=== PATIENT | female | born 1970 | race Caucasian/White ===

== ENCOUNTER 2022-12-16 08:52 | Emergency (ER) | payer BC ==
[2022-12-16] MEDS ORDERED: Sodium Chloride 0.9% 10 ML Syringe FLUSH PRN (08:58)
[2022-12-16] MEDS ORDERED: Metoprolol Tartrate 5 MG/5 ML SDV IVPUSH ONE (09:02)
[2022-12-16] MEDS ORDERED: Sodium Chloride 0.9% 1,000 ML IV SCH (09:15)
[2022-12-16 09:17] LABS: BASOPHILS PERCENT AUTO 0.3 % (0.2-1.2); EOSINOPHILS ABSOLUTE AUTO 0.1 x10^3/uL (0.0-0.5); EOSINOPHILS PERCENT AUTO 1.3 % (0.0-4.0); HEMATOCRIT 44.9 % (33.0-47.0); HEMOGLOBIN 16.3 g/dL (12.0-16.0); LYMPHOCYTES ABSOLUTE AUTO 2.4 x10^3/uL (1.0-4.8); LYMPHOCYTES PERCENT AUTO 30.7 % (25.0-50.0); MEAN CORPUSCULAR HEMOGLOBIN 33.2 pg (26.0-32.0); MEAN CORPUSCULAR HGB CONC 36.3 g/dL (32.0-36.0); MEAN CORPUSCULAR VOLUME 91.4 fL (78.0-93.0); MONOCYTES ABSOLUTE AUTO 0.9 x10^3/uL (0.0-0.8); MONOCYTES PERCENT AUTO 10.7 % (2.0-11.0); NEUTROPHILS ABSOLUTE AUTO 4.6 x10^3/uL (1.8-7.7); PLATELET COUNT,PLT 176 x10^3/uL (130-400); RED BLOOD CELL COUNT 4.91 x10^6/uL (4.00-5.50)
[2022-12-16] MEDS ORDERED: Aspirin 81 MG Tab.Chew PO ONE (09:29)
[2022-12-16 09:35] LABS: PROTHROMBIN TIME 10.4 SEC (9.5-12.2); PTT,PARTIAL THROMBOPLSTIN TIME 30.1 SEC (23.6-33.6)
[2022-12-16 09:46] LABS: A/G RATIO 1.12; ALANINE AMINOTRANSFERASE,ALT 32 U/L (14-59); ALBUMIN 3.7 g/dL (3.4-5.0); ALKALINE PHOSPHATASE 90 U/L (46-116); ASPARTATE AMNIOTRANSFERASE,AST 27 U/L (15-37); BILIRUBIN TOTAL 0.8 mg/dL (0.2-1.0); BLOOD UREA NITROGEN,BUN 12 mg/dL (7-18); CALCIUM 9.1 mg/dL (8.5-10.1); CARBON DIOXIDE,CO2 30 mmol/L (21-32); CHLORIDE,CL 99 mmol/L (98-107); CREATININE 0.7 mg/dL (0.55-1.02); GLUCOSE RANDOM 123 mg/dL (70-99); MAGNESIUM 1.5 mg/dL (1.8-2.4); POTASSIUM,K 4.1 mmol/L (3.5-5.1); SODIUM,NA 140 mmol/L (136-145)
[2022-12-16 09:48] LABS: ANION GAP 15.1 mmol/L (5-15); ESTIMATED GFR 104 mL/min (>=60)
[2022-12-16 09:49] LABS: ETHANOL BLOOD MEDICAL < 3 mg/dL (0-3)
[2022-12-16 10:09] LABS: TSH ULTRASENSITIVE < 0.007 uIU/mL (0.358-3.74)
[2022-12-16] MEDS ORDERED: Nitroglycerin 0.4 MG Tab.SL SL ONE (11:31)
[2022-12-16] MEDS ORDERED: Heparin Sodium 5,000 Units/ML Vial IVPUSH ONE (11:32)
[2022-12-16] MEDS ORDERED: Heparin Sodium/0.45% NaCl 25,000 UNITS/500 ML BAG IV STA (11:32)
[2022-12-16] MEDS ORDERED: Magnesium Sulfate/Water 2 GM in Premix Bag 1 BAG IV ONE (11:33)
[2022-12-16 12:11] LABS: AMPHETAMINES SCREEN, URINE NEGATIVE (NEGATIVE); BARBITURATE SCREEN,URINE NEGATIVE (NEGATIVE); BENZODIAZEPINES SCREEN,URINE NEGATIVE (NEGATIVE); BUPRENORPHINE SCREEN,URINE NEGATIVE (NEGATIVE); COCAINE METABOLITES,URINE NEGATIVE (NEGATIVE); METHADONE SCREEN, URINE NEGATIVE (NEGATIVE); METHAMPHETAMINE SCREEN, URINE NEGATIVE (NEGATIVE); OXYCODONE SCREEN,URINE NEGATIVE (NEGATIVE); PCP SCREEN,URINE NEGATIVE (NEGATIVE); THC SCREEN,URINE 50 NG/ML NEGATIVE (NEGATIVE)
== END 2022-12-16 12:45 | disposition short-term general hospital (02) ==
LOC: VM.ED 08:52
DX: I20.0 Unstable angina (principal); Z72.0 Tobacco use
CPT/HCPCS: 71045; 80053; 80305-QW; 80307; 83735; 84443; 84484; 85025; 85610; 85730; 93005; 93010; 96361; 96365; 96368; 96375; 99284; 99285-25; A9270-GY; J1644; J3475; J3490; J7030